=== PATIENT | male | born 1935 | race Caucasian/White ===

== ENCOUNTER → 2019-01-27 11:14 | Day surgery (SDC) | payer MEDICARE ==
--- NOTE | 2019-01-27 13:06 | BRIEFOPN ---
Brief Operative/Procedure Note - Operation Details Pre-Op Diagnosis: Rt pleural effusion Post-Op Diagnosis: Large rt pleural effusion Procedures: Thoracentesis with U/S guidance on right side Surgeon(s)/Proceduralists: poly Anesthesia: Local with 1% lidocaine 5cc Estimated Blood Loss: None Findings: Large rt effusion, dark yellow with blood tinge Specimen(s)/Culture(s) Description: Pleural fluid- Cytology, biochem, cultures, hematology Complications: None
[2019-01-27 14:42] LABS: Body Fluid Source Pleural Fluid
[2019-01-27 15:34] LABS: Body Fluid Mono 13 %
--- NOTE | 2019-01-27 20:35 | PRO ---
DICTATION ENDS ABRUPTLY THORACENTESIS REPORT: DATE OF PROCEDURE: 12/27/18 - SDS PROCEDURE PERFORMED: Ultrasound guided thoracentesis on the right side. PRE-PROCEDURAL DIAGNOSIS: Large right pleural effusion. INDICATION FOR THE PROCEDURE: Diagnostic and therapeutic. ANESTHESIA: Local anesthesia with 1% lidocaine 5 cc. DESCRIPTION OF PROCEDURE: Informed consent was obtained from the patient prior to the procedure after all the risks and benefits were thoroughly explained. The patient was found to have a large right pleural effusion. He had thoracentesis at an outside facility. Informed consent was obtained from the patient prior to the procedure after all the risks and benefits were thoroughly explained. The patient was sitting up and leaning forward during the procedure. Portable ultrasound was utilized at bedside to localize large amounts of right pleural effusion and site of access was marked. Strict aseptic precautions and barrier techniques utilized. CareFusion 8-Occitan thoracentesis catheter was utilized. Area was disinfected with chlorhexidine. Sterile drape was applied. Local anesthesia was achieved with lidocaine 1% transdermally subcutaneously down into the pleural space taking precautions. A #11 scalpel blade was used to make stab incision. CareFusion 8-Occitan thoracentesis catheter was subsequently inserted under manual suction taking precautions. The catheter was left in place and needle was removed. Large amount of blood stained pleural fluid was drained under manual suction. Catheter was then removed and sterile Band-Aid was applied. The patient tolerated the procedure well. Postprocedural vital signs were done and were found to be stable. The patient was discharged with appropriate instructions. [id number]/CPS #: [id number]
[2019-01-28 12:25] LABS: Lactate Dehydrogenase, BF 144 U/L
[2019-01-28 13:09] LABS: Fluid Type, Glucose PLEURAL; Fluid Type, Protein, Total PLEURAL
== END | disposition home or self-care (01) ==
LOC: OR 11:14
PROVIDERS: ATTEND Internal Medicine
DX: J90 Pleural effusion, not elsewhere classified (principal); I10 Essential (primary) hypertension; E11.9 Type 2 diabetes mellitus without complications; I25.10 Atherosclerotic heart disease of native coronary artery without angina pectoris; I48.20 Chronic atrial fibrillation, unspecified; Z79.82 Long term (current) use of aspirin; Z79.899 Other long term (current) drug therapy; Z79.01 Long term (current) use of anticoagulants; Z95.0 Presence of cardiac pacemaker; Z87.891 Personal history of nicotine dependence
CPT/HCPCS: 32554; 36415; 76604; 82945; 83615; 83986; 84157; 87070; 87205; 88112; 89051

== ENCOUNTER 2021-12-25 11:22 | Inpatient (IN) ==
[2021-12-25] MEDS ORDERED: Albuterol/Ipratropium NEB.SOL (2.5/0.5 MG) 3 ML NEB.SOLN INH ONE (11:42)
[2021-12-25 12:08] LABS: ABS Lymphocytes 0.4 10^3/ul (1.0-4.8); ABS Monocytes 1.1 10^3/ul (0-0.8); ABS Neutrophils 7.5 10^3/ul (1.5-7.7); Hematocrit 44 % (42-52); Hemoglobin 14.9 g/dL (14.0-18.0); Lymphocyte % 4.3 %; Mean Corpuscular HGB Conc 34 g/dL (31-36); Mean Corpuscular Hemoglobin 31 pg (27-31); Mean Corpuscular Volume 89 fL (80-94); Mean Platelet Volume 7.7 fL (7.4-10.4); Nucleated Red Blood Cells % 0.1; Platelet Count 194 10^3/uL (150-450); Red Blood Count 4.89 10^6 /uL (4.18-5.48); Red Cell Distribution Width 14 % (10-15)
[2021-12-25] MEDS ORDERED: Azithromycin 500 mg/250 ml NS 500 MG/250 ML BAG IVPB ONE (12:22)
[2021-12-25] MEDS ORDERED: cefTRIAXone 1 gm/50 mL D5W 1 GM/50 ML BAG IV ONE (12:22)
[2021-12-25 12:27] LABS: INR 1.76 (0.89-1.11)
[2021-12-25] MEDS ORDERED: Lactated Ringers 1000 ml BAG 1,000 ML IV ONE ×2 (12:53→12:54)
[2021-12-25 13:45] LABS: Albumin 3.8 g/dL (3.2-5.2); Albumin/Globulin Ratio 1.2 (1-3); C Reactive Protein 90.78 mg/L (<8.01); Calcium 8.6 mg/dL (8.6-10.3); Globulin 3.2 g/dL (2-4); Potassium 4.3 mmol/L (3.5-5.0); Total Bilirubin 0.7 mg/dL (0.2-1.0)
[2021-12-25] MEDS ORDERED: Ondansetron 4 mg VIAL 2 MG/ML 2 ml VIAL IV PRN (14:56)
[2021-12-25] MEDS ORDERED: Remdesivir 100 mg Vial 200 MG in NS 0.9% 250 ml 210 ML IV ONE (15:00)
[2021-12-25] MEDS ORDERED: Enoxaparin 40 MG/0.4 ML SYR SUBCUT SCH (15:00)
[2021-12-25] MEDS ORDERED: Dextrose 50% Syringe 50 ml 25 GM/50 ML SYRINGE IV PUSH PRN ×2 (15:00)
[2021-12-25] MEDS ORDERED: Albuterol HFA INHALER 8 gm MDI INH PRN (15:48)
[2021-12-25] MEDS ORDERED: DOXYcycline IV 100 MG in NS 0.9% 250 ML IVPB ONE (16:00)
[2021-12-26] MEDS: Timolol XE 0.5% (OPHTH)(NF) 1 DROP BTL LEFT EYE SCH ×3 (00:09→23:25)
[2021-12-26] MEDS: Latanoprost 0.005% 2.5 ml BTL LEFT EYE SCH ×2 (00:09→23:25)
[2021-12-26] MEDS ORDERED: Furosemide 40 mg/4 ml IV VIAL IV SLOW PU ONE (01:00)
[2021-12-26 06:04] LABS: ABS Lymphocytes 0.8 10^3/ul (1.0-4.8); ABS Monocytes 0.9 10^3/ul (0-0.8); ABS Neutrophils 5.1 10^3/ul (1.5-7.7); Eosinophil % 0.1 %; Hematocrit 42 % (42-52); Mean Corpuscular HGB Conc 34 g/dL (31-36); Mean Corpuscular Hemoglobin 30 pg (27-31); Mean Corpuscular Volume 89 fL (80-94); Mean Platelet Volume 8.3 fL (7.4-10.4); Platelet Count 189 10^3/uL (150-450); Red Cell Distribution Width 15 % (10-15); White Blood Count 6.8 10^3/uL (3.5-10.8)
[2021-12-26 06:10] LABS: INR 1.84 (0.89-1.11)
[2021-12-26 06:28] LABS: Albumin 3.6 g/dL (3.2-5.2); Albumin/Globulin Ratio 1.2 (1-3); Calcium 8.5 mg/dL (8.6-10.3); Magnesium 1.6 mg/dL (1.9-2.7); Potassium 3.9 mmol/L (3.5-5.0); Total Bilirubin 0.7 mg/dL (0.2-1.0); Total Protein 6.6 g/dL (6.4-8.9); eGFR CKD-EPI 67.2 (>60)
[2021-12-26] MEDS: Aspirin EC 81 mg TAB.EC (enteric coated) PO SCH (09:43)
[2021-12-26] MEDS: Insulin GLARGINE 100 un/ml 10 ml VIAL SUBCUT SCH (09:56)
[2021-12-26] MEDS: DOXYcycline 100 MG in NS 0.9% 250 ml 250 ML IVPB SCH ×2 (11:58→23:26)
[2021-12-26] MEDS: cefTRIAXone 1 gm/50 mL D5W 1 GM/50 ML BAG IV SCH (17:04)
[2021-12-26] MEDS ORDERED: Remdesivir 100 mg Vial 100 MG in NS 0.9% 250 ml 230 ML IV SCH (21:00)
[2021-12-26] MEDS ORDERED: Influenza vaccine *QUAD* *2022-23* 0.5 ML SYRINGE IM ONE (23:00)
[2021-12-27 07:57] LABS: ABS Eosinophils 0.1 10^3/ul (0-0.6); ABS Neutrophils 3.7 10^3/ul (1.5-7.7); Eosinophil % 1.4 %; Hematocrit 41 % (42-52); Hemoglobin 14.1 g/dL (14.0-18.0); Lymphocyte % 16.7 %; Mean Corpuscular HGB Conc 34 g/dL (31-36); Mean Corpuscular Hemoglobin 30 pg (27-31); Mean Corpuscular Volume 89 fL (80-94); Mean Platelet Volume 7.8 fL (7.4-10.4); Nucleated Red Blood Cells % 0.1; Platelet Count 175 10^3/uL (150-450); Red Blood Count 4.64 10^6 /uL (4.18-5.48); Red Cell Distribution Width 14 % (10-15); White Blood Count 5.8 10^3/uL (3.5-10.8)
[2021-12-27 08:22] LABS: Calcium 8.6 mg/dL (8.6-10.3); Magnesium 1.6 mg/dL (1.9-2.7); Potassium 3.7 mmol/L (3.5-5.0); eGFR CKD-EPI 77.5 (>60)
[2021-12-27] MEDS ORDERED: Magnesium Sulfate 2 gm BAG 2 GM/50 ML BAG IVPB ONE (09:01)
[2021-12-27] MEDS: SPIRIVA Respimat (tiotropium) 2.5 mcg/inh Inhaler INH SCH ×2 (10:12→14:56)
[2021-12-27] MEDS: Albuterol HFA INHALER 8 gm MDI INH SCH ×4 (10:13→23:53)
[2021-12-27] MEDS: Aspirin EC 81 mg TAB.EC (enteric coated) PO SCH (10:43)
[2021-12-27] MEDS: Insulin GLARGINE 100 un/ml 10 ml VIAL SUBCUT SCH (10:43)
[2021-12-27] MEDS: Timolol XE 0.5% (OPHTH)(NF) 1 DROP BTL LEFT EYE SCH (11:46)
[2021-12-27] MEDS: DOXYcycline 100 MG in NS 0.9% 250 ml 250 ML IVPB SCH (12:21)
[2021-12-27] MEDS: cefTRIAXone 1 gm/50 mL D5W 1 GM/50 ML BAG IV SCH (14:59)
[2021-12-27] MEDS: Latanoprost 0.005% 2.5 ml BTL LEFT EYE SCH (20:43)
[2021-12-27] MEDS: Timolol 0.5% OPTH.SOL BTL LEFT EYE SCH (20:44)
[2021-12-28] MEDS: DOXYcycline 100 MG in NS 0.9% 250 ml 250 ML IVPB SCH ×3 (00:15→23:48)
[2021-12-28] MEDS: Albuterol HFA INHALER 8 gm MDI INH SCH ×6 (03:24→23:21)
[2021-12-28] MEDS: SPIRIVA Respimat (tiotropium) 2.5 mcg/inh Inhaler INH SCH (08:25)
[2021-12-28] MEDS: Timolol 0.5% OPTH.SOL BTL LEFT EYE SCH ×2 (11:12→19:56)
[2021-12-28] MEDS: Insulin GLARGINE 100 un/ml 10 ml VIAL SUBCUT SCH (11:13)
[2021-12-28] MEDS: Aspirin EC 81 mg TAB.EC (enteric coated) PO SCH (11:13)
[2021-12-28] MEDS: cefTRIAXone 1 gm/50 mL D5W 1 GM/50 ML BAG IV SCH (16:40)
[2021-12-28] MEDS: Latanoprost 0.005% 2.5 ml BTL LEFT EYE SCH (20:08)
[2021-12-29] MEDS: Albuterol HFA INHALER 8 gm MDI INH SCH ×4 (03:15→14:55)
[2021-12-29 07:17] LABS: ABS Lymphocytes 0.5 10^3/ul (1.0-4.8); ABS Monocytes 0.6 10^3/ul (0-0.8); ABS Neutrophils 6.5 10^3/ul (1.5-7.7); Hematocrit 41 % (42-52); Hemoglobin 14.1 g/dL (14.0-18.0); Lymphocyte % 6.7 %; Mean Corpuscular HGB Conc 34 g/dL (31-36); Mean Corpuscular Hemoglobin 30 pg (27-31); Mean Corpuscular Volume 88 fL (80-94); Mean Platelet Volume 7.7 fL (7.4-10.4); Platelet Count 198 10^3/uL (150-450); Red Blood Count 4.69 10^6 /uL (4.18-5.48); Red Cell Distribution Width 14 % (10-15); White Blood Count 7.6 10^3/uL (3.5-10.8)
[2021-12-29] MEDS: SPIRIVA Respimat (tiotropium) 2.5 mcg/inh Inhaler INH SCH (07:21)
[2021-12-29 07:39] LABS: Calcium 8.8 mg/dL (8.6-10.3); Magnesium 1.7 mg/dL (1.9-2.7); Potassium 4.3 mmol/L (3.5-5.0); eGFR CKD-EPI 84.3 (>60)
[2021-12-29] MEDS: Insulin GLARGINE 100 un/ml 10 ml VIAL SUBCUT SCH (10:01)
[2021-12-29] MEDS: Timolol 0.5% OPTH.SOL BTL LEFT EYE SCH (10:03)
[2021-12-29] MEDS: Aspirin EC 81 mg TAB.EC (enteric coated) PO SCH (10:03)
[2021-12-29] MEDS ORDERED: Magnesium Sulfate 2 gm BAG 2 GM/50 ML BAG IVPB ONE (11:32)
[2021-12-29] MEDS: DOXYcycline 100 MG in NS 0.9% 250 ml 250 ML IVPB SCH (11:46)
[2021-12-29] MEDS: cefTRIAXone 1 gm/50 mL D5W 1 GM/50 ML BAG IV SCH (14:55)
[2021-12-29 18:12] VITALS: BP 140/71
== END 2021-12-29 16:45 | disposition swing bed (61) | DRG 177 ==
LOC: EDHOLD 11:22 → ED 11:22 → SUATTDRO 14:56 → EDHOLD 12-26 12:14 → MEDTELE 12-26 12:54 → SUATTDRO 12-28 10:23
PROVIDERS: ADMIT Hospitalist; ATTEND Internal Medicine